=== PATIENT | male | born 1945 | race Asian ===

== ENCOUNTER 2022-03-15 12:59 | Emergency (ER) | payer MEDICAID, OTHER ==
[~2022-03-15] VITALS: Ht 162.6 cm; Wt 72.6 kg
[2022-03-15] MEDS ORDERED: AMLO-496 PO (15:18)
[2022-03-15 15:49] VITALS: BP 138/71
== END 2022-03-15 16:59 | disposition home or self-care (01) ==
LOC: ER 12:59
DX: I10 Essential (primary) hypertension (principal); Z76.0 Encounter for issue of repeat prescription